=== PATIENT | female | born 1990 | race American Indian/Alaskan Native ===

== ENCOUNTER 2019-08-12 19:31 | Emergency (ER) | payer OTHER ==
[2019-08-12 19:50] VITALS: BP 145/79
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
[2019-08-12] MEDS ORDERED: CYCLOBENZAPRINE 10 MG TAB PO ONE (22:44)
[2019-08-12] MEDS ORDERED: IBUPROFEN 600 MG TAB PO ONE (22:44)
[2019-08-12] MEDS ORDERED: ONDANSETRON 4 MG ODT TAB PO ONE (22:44)
[2019-08-12] MEDS ORDERED: HYDROcodone/ACETAMINOPHEN 5-325 MG TAB PO ONE (22:44)
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
== END 2019-08-13 00:40 | disposition home or self-care (01) ==
LOC: ED 19:31
DX: M62.830 Muscle spasm of back (principal); M62.838 Other muscle spasm; I10 Essential (primary) hypertension; Z79.899 Other long term (current) drug therapy; Z91.048 Other nonmedicinal substance allergy status; Z91.040 Latex allergy status; V49.49XA Driver injured in collision with other motor vehicles in traffic accident, initial encounter; Y93.89 Activity, other specified; Y92.410 Unspecified street and highway as the place of occurrence of the external cause; Y99.8 Other external cause status
CPT/HCPCS: 72040; 72100; Q0162

== ENCOUNTER 2021-07-31 09:15 | Emergency (ER) | payer OTHER ==
[2021-07-31] MEDS ORDERED: oxyCODONE /ACETAMINOPHEN 5-325MG TAB PO PRN (09:40)
[2021-07-31] MEDS ORDERED: dexAMETHasone 20 MG/5 ML VIAL IM ONE (09:40)
[2021-07-31] MEDS ORDERED: KETOROLAC 30 MG/1 ML INJ IM ONE (09:40)
[2021-07-31] MEDS ORDERED: CYCLOBENZAPRINE 10 MG TAB PO ONE ×2 (09:57→10:18)
--- NOTE | 2021-07-31 09:59 | Emergency Department Report ---
ED Neck Pain/Injury HPI - General Chief Complaint: Neck Pain/Injury Stated Complaint: CANT MOVE NECK, PAIN Time Seen by Provider: 07/31/21 09:29 Mode of arrival: Ambulatory Limitations: No Limitations - History of Present Illness Initial Comments: The patient was evaluated in the emergency department for symptoms described in the history of present illness. He/she was evaluated in the context of the global COVID-19 pandemic, which necessitated consideration that the patient might be at risk for infection with the virus that causes COVID-19. Institutional protocols and algorithms that pertain to the evaluation of patients at risk for COVID-19 are in a state of rapid change based on information released by regulatory bodies including the CDC and federal and state organizations. These policies and algorithms were followed during the patient's care in the emergency department. Please note that these policies, procedures and recommendations changed on a rapid basis. 30-year-old -Portuguese female presents to the emergency room for 2-day history of " crick in my neck"'s. Patient denies any injuries. Patient states that she had woke up like that. She reports the pain is with movement. She denies any fever no chills, no nausea no vomiting. She states she had a headache yesterday that resolved on its own. 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 She has a history of seizure disorder and is currently on Keppra last seizure was 2 days ago. I asked patient if she thinks she may have hurt her neck at that time she says no she feels it is because of the way she slept. She took Tylenol yesterday. Complaint: neck pain, upper back pain Onset/Timin -: days(s) Place: home Radiation: right lateral, left lateral Severity: severe Severity scale (0 -10): 10 Quality: sharp, stabbing Consistency: constant Improves With: none Worsens With: movement of neck Associated Symptoms: none. denies: fever, numbness, tingling, weakness, nausea, vomiting Treatments Prior to Arrival: none - Related Data Home Medications Medication Instructions Recorded Confirmed Last Taken levETIRAcetam [Keppra] 500 mg PO BID 08/01/13 12/22/13 Unknown Previous Rx's Medication Instructions Recorded Last Taken Type Ibuprofen [Motrin] 600 mg PO Q8H PRN #20 tablet 08/12/19 Unknown Rx traMADoL [Ultram] 50 mg PO Q6HR PRN #12 tablet 08/12/19 Unknown Rx Ibuprofen [Motrin 800 MG tab] 800 mg PO Q8HR PRN #15 tablet 07/31/21 Unknown Rx methOCARBAMOL [Robaxin TAB] 500 mg PO Q8H PRN #15 tablet 07/31/21 Unknown Rx Allergies Allergy/AdvReac Type Severity Reaction Status Date / Time Latex, Natural Rubber AdvReac Swelling Verified 07/31/21 09:27 ED Review of Systems ROS: Stated complaint: CANT MOVE NECK, PAIN Other details as noted in HPI Comment: All other systems reviewed and negative ED Past Medical Hx - Past Medical History Hx Hypertension: Yes Hx Congestive Heart Failure: No Hx Diabetes: No Hx Deep Vein Thrombosis: No Hx Renal Disease: No Hx Sickle Cell Disease: No Hx Seizures: Yes (2005 RELATED TO INCREASE STRESS) Hx Asthma: No Hx COPD: No Hx HIV: No - Social History Smoking Status: Never Smoker Substance Use Type: None - Medications Home Medications: Home Medications Medication Instructions Recorded Confirmed Last Taken Type levETIRAcetam [Keppra] 500 mg PO BID 08/01/13 12/22/13 Unknown History Ibuprofen [Motrin] 600 mg PO Q8H PRN #20 tablet 08/12/19 Unknown Rx traMADoL [Ultram] 50 mg PO Q6HR PRN #12 tablet 08/12/19 Unknown Rx Ibuprofen [Motrin 800 MG tab] 800 mg PO Q8HR PRN #15 tablet 07/31/21 Unknown Rx methOCARBAMOL [Robaxin TAB] 500 mg PO Q8H PRN #15 tablet 07/31/21 Unknown Rx ED Physical Exam - General Limitations: No Limitations General appearance: alert, in no apparent distress - Head Head exam: Present: atraumatic, normocephalic - Eye Eye exam: Present: normal appearance - ENT ENT exam: Present: mucous membranes moist, normal external ear exam - Neck Neck exam: Present: normal inspection, tenderness (Bilateral trapeze). Absent: lymphadenopathy, thyromegaly - Respiratory Respiratory exam: Absent: respiratory distress, accessory muscle use - Cardiovascular Cardiovascular Exam: Present: regular rate - Extremities Exam Extremities exam: Present: normal inspection, full ROM - Back Exam Back exam: Present: normal inspection - Neurological Exam Neurological exam: Present: alert, oriented X3, normal gait - Psychiatric Psychiatric exam: Present: normal affect, normal mood - Skin Skin exam: Present: warm, dry, intact, normal color. Absent: rash ED Course Vital Signs 07/31/21 07/31/21 09:30 09:57 Temperature 98.4 F Pulse Rate 60 Respiratory 16 18 Rate Blood Pressure 121/80 [Left] O2 Sat by Pulse 100 Oximetry ED Medical Decision Making - Medical Decision Making 30-year-old -Portuguese female presents to the emergency room for 2-day history of " crick in my neck"'s. Patient denies any injuries. Patient states that she had woke up like that. She reports the pain is with movement. She denies any fever no chills, no nausea no vomiting. She states she had a headache yesterday that resolved on its own. 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 She has a history of seizure disorder and is currently on Keppra last seizure was 2 days ago. I asked patient if she thinks she may have hurt her neck at that time she says no she feels it is because of the way she slept. She took Tylenol yesterday. Toradol 30 mg IM, dexamethasone 10 mg IM and Percocet 7.5 mg p.o. and Flexeril 5 mg. Patient be discharged home on ibuprofen 800 mg three times a day and baclofen 5 mg p.o. twice daily. Critical care attestation.: If time is entered above; I have spent that time in minutes in the direct care of this critically ill patient, excluding procedure time. ED Disposition Clinical Impression: Neck muscle strain, Strain of trapezius muscle Disposition: HOME / SELF CARE / HOMELESS Is pt being admited?: No Does the pt Need Aspirin: No Condition: Stable Instructions: Muscle Strain, [id number] Additional Instructions: Please take pain medication and muscle relaxant as prescribed. Continue with your chronic medication of Keppra. Follow-up with your primary care provider if symptoms persist or gets worse. Prescriptions: Ibuprofen [Motrin 800 MG tab] 800 mg PO Q8HR PRN #15 tablet PRN Reason: Pain , Severe (7-10) methOCARBAMOL [Robaxin TAB] 500 mg PO Q8H PRN #15 tablet PRN Reason: Muscle Spasm Forms: Work/School Release Form(ED) Time of Disposition: 11:18
[2021-07-31 10:21] VITALS: BP 121/80
== END 2021-07-31 11:31 | disposition home or self-care (01) ==
LOC: ED 09:15
DX: S16.1XXA Strain of muscle, fascia and tendon at neck level, initial encounter (principal); S46.812A Strain of other muscles, fascia and tendons at shoulder and upper arm level, left arm, initial encounter; S46.811A Strain of other muscles, fascia and tendons at shoulder and upper arm level, right arm, initial encounter; Z91.040 Latex allergy status; Z86.69 Personal history of other diseases of the nervous system and sense organs; Z79.899 Other long term (current) drug therapy; X58.XXXA Exposure to other specified factors, initial encounter; Y93.89 Activity, other specified; Y92.89 Other specified places as the place of occurrence of the external cause; Y99.8 Other external cause status
CPT/HCPCS: 96372; 99282; J1100; J1885

== ENCOUNTER 2021-12-27 19:58 | Emergency (ER) | payer OTHER | END 2021-12-27 21:10 | disposition left against medical advice (07) | LOC: ED 19:58 | DX: R51.9 Headache, unspecified (principal); Z53.21 Procedure and treatment not carried out due to patient leaving prior to being seen by health care provider ==